=== PATIENT | male | born 1995 | race Caucasian/White ===

== ENCOUNTER 2021-02-28 17:09 | Emergency (ER) | payer BC ==
[2021-03-01 14:03] LABS: SARS-CoV-2 PCR by NAA Not Detected (NotDetected)
== END 2021-02-28 18:00 | disposition home or self-care (01) ==
LOC: NAV ERS 17:09
DX: Z20.822 Contact with and (suspected) exposure to COVID-19 (principal)
CPT/HCPCS: 99283; U0003; U0005